=== PATIENT | male | born 1955 | race Caucasian/White ===

== ENCOUNTER 2025-02-07 20:18 | Emergency (ER) | payer MEDICARE, OTHER ==
[2025-02-07] MEDS ORDERED: Sodium Chloride 0.9% 10 ML Syringe FLUSH PRN (20:44)
[2025-02-07 20:56] LABS: BASOPHILS ABSOLUTE AUTO 0.0 K/mm3 (0.0-0.2); BASOPHILS PERCENT AUTO 0.3 % (0.0-1.0); EOSINOPHILS ABSOLUTE AUTO 0.0 K/mm3 (0.0-0.4); EOSINOPHILS PERCENT AUTO 0.1 % (0.0-6.0); IMMATURE GRAN ABSOLUTE AUTO 0.05 K/mm3 (0.00-0.05); IMMATURE GRAN PERCENT AUTO 0.5 % (0.0-0.4); LYMPHOCYTES ABSOLUTE AUTO 1.6 K/mm3 (1.0-4.8); LYMPHOCYTES PERCENT AUTO 14.2 % (24.0-44.0); MEAN PLATELET VOLUME 9.0 fl (9.4-12.4); MONOCYTES ABSOLUTE AUTO 0.9 K/mm3 (0.0-0.8); MONOCYTES PERCENT AUTO 7.8 % (0.0-8.0); NEUTROPHILS ABSOLUTE AUTO 8.6 K/mm3 (1.8-7.7); NEUTROPHILS PERCENT AUTO 77.1 % (41.0-71.0); NRBC ABSOLUTE 0.00 (0.00-0.02); NRBC PERCENT 0.0 % (0.0-0.2); PLATELET COUNT,PLT 254 K/mm3 (150-400); RED BLOOD CELL COUNT 4.93 M/mm3 (4.52-5.90); WHITE BLOOD CELL COUNT,WBC 11.08 K/mm3 (3.9-11.3)
[2025-02-07 21:29] LABS: A/G RATIO 0.7 (1-2); ALANINE AMINOTRANSFERASE,ALT 16.0 U/L (16-63); ASPARTATE AMNIOTRANSFERASE,AST 32.0 U/L (15-37); BILIRUBIN TOTAL 0.8 mg/dL (0.2-1.0); BLOOD UREA NITROGEN,BUN 20.0 mg/dL (7-18); CARBON DIOXIDE,CO2 26.0 mEq/L (21-32); CHLORIDE,CL 100.0 mEq/L (98-107); CREATININE 1.4 mg/dL (0.7-1.3); EST CRCL DRUG DOSING (CG) 59.52 mL/min; ESTIMATED GFR 54.0 mL/min (>60); GLUCOSE RANDOM 208.0 mg/dL (70-99); POTASSIUM,K 3.9 mEq/L (3.5-5.1); PROTEIN TOTAL,TP 7.8 g/dl (6.4-8.2); SODIUM,NA 135.0 mEq/L (136-145); TROPONIN I HIGH SENSITIVITY 23.0 pg/mL (<=76); TSH 0.975 uIU/mL (0.358-3.74)
[2025-02-07] MEDS: Iopamidol 755 Mg/ML 100 ML Bottle IVPUSH ONE (22:06)
[2025-02-07] MEDS: Sodium Chloride 0.9% 10 ML Syringe FLUSH PRN (22:06)
[2025-02-07] MEDS: Lactated Ringers 500 ML IV ONE (23:11)
[2025-02-07 23:20] LABS: APPEARANCE,URINE CLEAR (Clear); GLUCOSE,URINE 2+ (Negative); OCCULT BLOOD,URINE NEGATIVE (Negative)
[2025-02-07 23:28] LABS: EPITHELIAL CELLS,URINE 0-5 /hpf (0-5)
[2025-02-07 23:33] LABS: INR 1.09
[2025-02-07] MEDS: Heparin Sodium 5,000 Units/ML Vial IVPUSH ONE (23:39)
[2025-02-07] MEDS: Heparin Sodium/D5W 250 ML IV SCH (23:41)
== END 2025-02-08 01:10 ==
LOC: JD.ED 20:18
DX: I26.99 Other pulmonary embolism without acute cor pulmonale (principal); I48.91 Unspecified atrial fibrillation; R94.4 Abnormal results of kidney function studies; R79.89 Other specified abnormal findings of blood chemistry; Z79.82 Long term (current) use of aspirin; Z79.899 Other long term (current) drug therapy; Z79.4 Long term (current) use of insulin; Z79.84 Long term (current) use of oral hypoglycemic drugs
CPT/HCPCS: 36415; 71045; 71275; 80053; 81001; 83735; 83880; 84443; 84484; 85025; 85379; 85610; 85730; 87086; 93005; 96361; 96365; 99285; J1644; J7120; Q9967